=== PATIENT | male | born 1990 | race African-American/Black ===

== ENCOUNTER 2016-06-08 02:29 | Emergency (ER) | payer MEDICAID | END 2016-06-08 04:30 | disposition home or self-care (01) | LOC: D.ER 02:29 | DX: T23.021A Burn of unspecified degree of single right finger (nail) except thumb, initial encounter (principal); X08.8XXA Exposure to other specified smoke, fire and flames, initial encounter; Y93.89 Activity, other specified; Y92.89 Other specified places as the place of occurrence of the external cause; F17.200 Nicotine dependence, unspecified, uncomplicated ==

== ENCOUNTER 2016-07-18 05:33 | Emergency (ER) | payer MEDICAID ==
[2016-07-18 06:14] LABS: BASOPHILS 0.3 % (0.0-2.0); EOSINOPHILS 1.4 % (0-7); HEMOGLOBIN 15.1 g/dL (13.5-17.5); IMMATURE GRANULOCYTES 0.1 % (0-5); LYMPHOCYTES 32.4 % (15-50); MCH 32.3 pg (26.0-34.0); MCV 89.7 fL (80.0-100.0); MEAN PLATELET VOLUME 9.4 fL (7.4-10.4); MONOCYTES 11.8 % (2-11); PLATELET COUNT 216 10x3/uL (130-400); RBC 4.68 10x6/uL (4.20-6.10); RDW 13.8 % (11.5-14.5); WBC 7.8 10x3/uL (4.8-10.8)
[2016-07-18 06:44] LABS: CALC OSMOLALITY 282 mosm/kg (275-300); CALCIUM 8.8 mg/dL (8.5-10.1); CARBON DIOXIDE 23.8 mmol/L (21.0-32.0); CHLORIDE - SERUM 107 mmol/L (98-107); CREATININE - SERUM 0.8 mg/dL (0.6-1.3); GLUCOSE 104 mg/dL (74-106); POTASSIUM - SERUM 3.6 mmol/L (3.5-5.1); SODIUM 143 mmol/L (136-145); UREA NITROGEN 7 mg/dL (7-18); eGFR NON AFRICAN AMERICAN > 90 mL/min (90-120)
== END 2016-07-18 07:23 | disposition home or self-care (01) ==
LOC: D.ER 05:33
PROVIDERS: Family Medicine
DX: K52.9 Noninfective gastroenteritis and colitis, unspecified (principal); F17.200 Nicotine dependence, unspecified, uncomplicated

== ENCOUNTER 2016-08-05 07:23 | Emergency (ER) | payer MEDICAID | END 2016-08-05 08:50 | disposition home or self-care (01) | LOC: D.ER 07:23 | DX: J20.9 Acute bronchitis, unspecified (principal); F17.200 Nicotine dependence, unspecified, uncomplicated ==

== ENCOUNTER 2017-04-02 06:35 | Emergency (ER) | payer MEDICAID | END 2017-04-02 08:14 | disposition home or self-care (01) | LOC: D.ER 06:35 | DX: R11.10 Vomiting, unspecified (principal); R19.7 Diarrhea, unspecified; R10.9 Unspecified abdominal pain; J20.9 Acute bronchitis, unspecified; J45.909 Unspecified asthma, uncomplicated; F17.200 Nicotine dependence, unspecified, uncomplicated ==

== ENCOUNTER 2017-07-20 20:18 | Emergency (ER) | payer SELFPAY ==
[2017-07-20 20:46] LABS: BASOPHILS 0.2 % (0-2); HEMATOCRIT 43.7 % (42.0-54.0); HEMOGLOBIN 15.9 g/dL (13.5-17.5); IMMATURE GRANULOCYTES 0.2 % (0-5); LYMPHOCYTES 28.4 % (15-50); MCH 32.6 pg (26.0-34.0); MCHC 36.4 g/dL (31.0-37.0); MCV 89.7 fL (80.0-100.0); MEAN PLATELET VOLUME 9.6 fL (7.4-10.4); MONOCYTES 10.2 % (2-11); PLATELET COUNT 203 10x3/uL (130-400); RBC 4.87 10x6/uL (4.20-6.10); RDW 13.4 % (11.5-14.5); WBC 12.9 10x3/uL (4.8-10.8)
[2017-07-23 02:44] VITALS: BMI 28.7
== END 2017-07-20 21:39 | disposition home or self-care (01) ==
LOC: D.ER 20:18
PROVIDERS: Emergency Medicine
DX: J20.9 Acute bronchitis, unspecified (principal); J06.9 Acute upper respiratory infection, unspecified; F17.200 Nicotine dependence, unspecified, uncomplicated

== ENCOUNTER 2017-07-22 06:04 | Inpatient (IN) | payer OTHER ==
[~2017-07-22] VITALS: Ht 177.8 cm; Wt 90.9 kg
[2017-07-22 06:33] LABS: BASOPHILS 0.1 % (0-2); EOSINOPHILS 0 % (0-7); HEMATOCRIT 43.6 % (42.0-54.0); IMMATURE GRANULOCYTES 0.4 % (0-5); LYMPHOCYTES 20.9 % (15-50); MCH 32.7 pg (26.0-34.0); MCHC 36.7 g/dL (31.0-37.0); MCV 89.2 fL (80.0-100.0); MEAN PLATELET VOLUME 9.3 fL (7.4-10.4); MONOCYTES 10.5 % (2-11); NEUTROPHILS 68.1 % (40-80); PLATELET COUNT 201 10x3/uL (130-400); RBC 4.89 10x6/uL (4.20-6.10); RDW 13.3 % (11.5-14.5); WBC 14.6 10x3/uL (4.8-10.8)
[2017-07-22 06:58] LABS: ALBUMIN 3.4 g/dL (3.4-5.0); ALKALINE PHOSPHATASE 73 U/L (46-116); ALT (SGPT) 25 U/L (10-68); BILIRUBIN - TOTAL 0.97 mg/dL (0.2-1.3); CALC OSMOLALITY 275 mosm/kg (275-300); CALCIUM 8.6 mg/dL (8.5-10.1); CARBON DIOXIDE 22.3 mmol/L (21.0-32.0); CHLORIDE - SERUM 101 mmol/L (98-107); CREATININE - SERUM 1.2 mg/dL (0.6-1.3); GLUCOSE 152 mg/dL (74-106); POTASSIUM - SERUM 3.2 mmol/L (3.5-5.1); SODIUM 136 mmol/L (136-145); UREA NITROGEN 14 mg/dL (7-18); eGFR NON AFRICAN AMERICAN 78 mL/min (90-120)
[2017-07-22 06:59] LABS: MAGNESIUM - SERUM 1.9 mg/dL (1.8-2.4)
[2017-07-23 02:44] VITALS: BP 153/64; Ht 177.8 cm; Wt 90.9 kg
[2017-07-23] MEDS ORDERED: TYLENOL W/CODEI1 TAB PO (02:50)
[2017-07-23 04:45] VITALS: BP 164/74
[2017-07-23 07:13] LABS: BASOPHILS 0.3 % (0-2); EOSINOPHILS 0.4 % (0-7); HEMATOCRIT 41.9 % (42.0-54.0); HEMOGLOBIN 14.9 g/dL (13.5-17.5); IMMATURE GRANULOCYTES 0.3 % (0-5); LYMPHOCYTES 26.8 % (15-50); MCHC 35.6 g/dL (31.0-37.0); MCV 89.9 fL (80.0-100.0); MEAN PLATELET VOLUME 9.7 fL (7.4-10.4); MONOCYTES 14.4 % (2-11); NEUTROPHILS 57.8 % (40-80); PLATELET COUNT 219 10x3/uL (130-400); RBC 4.66 10x6/uL (4.20-6.10); RDW 13.2 % (11.5-14.5)
[2017-07-23 07:15] LABS: WBC 10.5 10x3/uL (4.8-10.8)
[2017-07-23 07:33] LABS: CALCIUM 8.5 mg/dL (8.5-10.1); CARBON DIOXIDE 24.2 mmol/L (21.0-32.0); CHLORIDE - SERUM 104 mmol/L (98-107); POTASSIUM - SERUM 3.5 mmol/L (3.5-5.1); SODIUM 140 mmol/L (136-145); eGFR NON AFRICAN AMERICAN > 90 mL/min (90-120)
[2017-07-23 07:45] LABS: CALC OSMOLALITY 277 mosm/kg (275-300); GLUCOSE 94 mg/dL (74-106); UREA NITROGEN 10 mg/dL (7-18)
[2017-07-23 10:38] VITALS: BP 130/74
[2017-07-23 15:04] VITALS: BP 123/71
[2017-07-23 19:08] VITALS: BP 145/86
[2017-07-23 20:24] VITALS: BP 155/82
[2017-07-24 00:16] VITALS: BP 154/88
[2017-07-24 05:05] VITALS: BP 131/69
[2017-07-24 06:19] LABS: BASOPHILS 0.4 % (0-2); EOSINOPHILS 1.5 % (0-7); HEMATOCRIT 40.9 % (42.0-54.0); HEMOGLOBIN 14.7 g/dL (13.5-17.5); IMMATURE GRANULOCYTES 0.4 % (0-5); LYMPHOCYTES 30.8 % (15-50); MCHC 35.9 g/dL (31.0-37.0); MCV 88.9 fL (80.0-100.0); MEAN PLATELET VOLUME 9.3 fL (7.4-10.4); MONOCYTES 11.2 % (2-11); NEUTROPHILS 55.7 % (40-80); PLATELET COUNT 227 10x3/uL (130-400)
[2017-07-24 06:57] LABS: CALC OSMOLALITY 281 mosm/kg (275-300); CARBON DIOXIDE 25.1 mmol/L (21.0-32.0); CHLORIDE - SERUM 106 mmol/L (98-107); CREATININE - SERUM 0.9 mg/dL (0.6-1.3); GLUCOSE 101 mg/dL (74-106); POTASSIUM - SERUM 3.4 mmol/L (3.5-5.1); SODIUM 142 mmol/L (136-145); UREA NITROGEN 9 mg/dL (7-18); eGFR NON AFRICAN AMERICAN > 90 mL/min (90-120)
[2017-07-24 08:15] VITALS: BP 137/76
[2017-07-24 12:26] VITALS: BP 140/80
[2017-07-24 16:25] VITALS: BP 131/68
[2017-07-24 21:54] VITALS: BP 136/76
[2017-07-25 01:01] VITALS: BP 148/78
[2017-07-25 04:47] VITALS: BP 154/74
[2017-07-25 06:54] LABS: BASOPHILS 0.9 % (0-2); EOSINOPHILS 1.6 % (0-7); HEMATOCRIT 41.7 % (42.0-54.0); HEMOGLOBIN 15.1 g/dL (13.5-17.5); IMMATURE GRANULOCYTES 0.4 % (0-5); LYMPHOCYTES 38.1 % (15-50); MCH 31.9 pg (26.0-34.0); MCHC 36.2 g/dL (31.0-37.0); MCV 88.2 fL (80.0-100.0); MEAN PLATELET VOLUME 9.4 fL (7.4-10.4); MONOCYTES 8.4 % (2-11); NEUTROPHILS 50.6 % (40-80); PLATELET COUNT 265 10x3/uL (130-400); RBC 4.73 10x6/uL (4.20-6.10); RDW 12.8 % (11.5-14.5); WBC 9.7 10x3/uL (4.8-10.8)
[2017-07-25 07:00] LABS: CALC OSMOLALITY 281 mosm/kg (275-300); CARBON DIOXIDE 25.2 mmol/L (21.0-32.0); CHLORIDE - SERUM 107 mmol/L (98-107); CREATININE - SERUM 0.8 mg/dL (0.6-1.3); GLUCOSE 97 mg/dL (74-106); PHOSPHOROUS 4.9 mg/dL (2.5-4.9); SODIUM 142 mmol/L (136-145); UREA NITROGEN 9 mg/dL (7-18); eGFR NON AFRICAN AMERICAN > 90 mL/min (90-120)
[2017-07-25 07:57] VITALS: BP 135/87
[2017-07-25 12:01] VITALS: BP 142/87
[2017-07-25] MEDS ORDERED: ZITHROMAX250 MG PO (14:03)
[2017-07-25] MEDS ORDERED: OMNICEF300 MG PO (14:04)
[2017-07-25] MEDS ORDERED: ALBUTEROL2.5 MG/3 M INH (14:04)
[2017-07-25] MEDS ORDERED: NICODERM C1 PATCH .2 TRANSDERM (14:04)
[2017-07-25] MEDS ORDERED: BENZONATATE200 MG PO (14:05)
[2017-07-25] MEDS ORDERED: SINGULAIR10 MG PO (14:05)
[2017-07-25] MEDS ORDERED: PREDNISONE20 MG PO (14:07)
[2017-08-01 05:17] LABS: IMMUNOGLOBULIN E 172 IU/mL (0-100)
== END 2017-07-25 15:36 | disposition home or self-care (01) | DRG 193 ==
LOC: D.ER 06:04 → D.MS 08:13 → D.EDHOLD 08:13 → D.MS 22:41
PROVIDERS: Emergency Medicine; Internal Medicine Nephrology; Internal Medicine Pulmonary Disease
DX: J18.9 Pneumonia, unspecified organism (principal); J96.21 Acute and chronic respiratory failure with hypoxia; F17.203 Nicotine dependence unspecified, with withdrawal; E87.6 Hypokalemia; J98.01 Acute bronchospasm

== ENCOUNTER 2018-03-03 11:32 | Emergency (ER) | payer SELFPAY ==
[~2018-03-03] VITALS: Ht 177.8 cm; Wt 102.3 kg
[~2018-03-03 11:32] MED LIST: ALBUTEROL2.5 MG/3 M INH; BENZONATATE200 MG PO; NICODERM C1 PATCH .2 TRANSDERM; OMNICEF300 MG PO; PREDNISONE20 MG PO; SINGULAIR10 MG PO; TYLENOL W/CODEI1 TAB PO; ZITHROMAX250 MG PO
[2018-03-03 11:36] VITALS: Ht 177.8 cm; Wt 102.3 kg
[2018-03-03] MEDS ORDERED: FLUTICASONE PRO16 GM NASAL (14:07)
[2018-03-03] MEDS ORDERED: MUCINEX DM ER1 EAC1 PO (14:07)
[2018-03-03 14:29] VITALS: BP 128/82
== END 2018-03-03 14:29 | disposition home or self-care (01) ==
LOC: D.ER 11:32
DX: J09.X2 Influenza due to identified novel influenza A virus with other respiratory manifestations (principal); R09.89 Other specified symptoms and signs involving the circulatory and respiratory systems; R50.9 Fever, unspecified

== ENCOUNTER 2018-06-02 08:43 | Emergency (ER) | payer BC ==
[~2018-06-02] VITALS: Ht 177.8 cm; Wt 109.1 kg
[~2018-06-02 08:43] MED LIST changes: +FLUTICASONE PRO16 GM NASAL; +MUCINEX DM ER1 EAC1 PO
[2018-06-02 08:46] VITALS: Ht 177.8 cm; Wt 109.1 kg
[2018-06-02] MEDS ORDERED: KEFLEX500 MG PO (09:19)
[2018-06-02 09:27] VITALS: BP 156/73
== END 2018-06-02 09:28 | disposition home or self-care (01) ==
LOC: D.ER 08:43
DX: J02.9 Acute pharyngitis, unspecified (principal); R05 Cough; F17.200 Nicotine dependence, unspecified, uncomplicated

== ENCOUNTER 2018-09-01 07:35 | Emergency (ER) | payer BC ==
[~2018-09-01] VITALS: Ht 177.8 cm; Wt 118.2 kg
[~2018-09-01 07:35] MED LIST changes: +KEFLEX500 MG PO
[2018-09-01 07:46] VITALS: BP 152/83; Ht 177.8 cm; Wt 118.2 kg
[2018-09-01] MEDS ORDERED: NASACORT10.8 ML NASAL (08:15)
[2018-09-01] MEDS ORDERED: KEFLEX500 MG PO (08:15)
== END 2018-09-01 08:27 | disposition home or self-care (01) ==
LOC: D.ER 07:35
DX: J02.9 Acute pharyngitis, unspecified (principal)

== ENCOUNTER 2019-04-14 19:06 | Emergency (ER) | payer SELFPAY ==
[~2019-04-14] VITALS: Ht 177.8 cm; Wt 104.5 kg
[~2019-04-14 19:06] MED LIST changes: +NASACORT10.8 ML NASAL
[2019-04-14 19:17] VITALS: Ht 177.8 cm; Wt 104.5 kg
[2019-04-14 20:35] VITALS: BP 161/88
== END 2019-04-14 20:35 | disposition home or self-care (01) ==
LOC: D.ER 19:06
DX: J11.1 Influenza due to unidentified influenza virus with other respiratory manifestations (principal)

== ENCOUNTER 2019-09-30 10:31 | Emergency (ER) | payer SELFPAY ==
[~2019-09-30] VITALS: Ht 177.8 cm; Wt 111.4 kg
[2019-09-30 11:00] VITALS: Ht 177.8 cm; Wt 111.4 kg
[2019-09-30] MEDS ORDERED: NAPROSYN500 MG PO (11:45)
[2019-09-30] MEDS ORDERED: KEFLEX500 MG PO (11:45)
[2019-09-30 11:52] VITALS: BP 159/97
== END 2019-09-30 11:52 | disposition home or self-care (01) ==
LOC: D.ER 10:31
DX: L03.115 Cellulitis of right lower limb (principal)

== ENCOUNTER 2019-12-02 07:12 | Emergency (ER) | payer SELFPAY ==
[~2019-12-02] VITALS: Ht 177.8 cm; Wt 109.1 kg
[~2019-12-02 07:12] MED LIST changes: +NAPROSYN500 MG PO
[2019-12-02 07:18] VITALS: BP 122/92; Ht 177.8 cm; Wt 109.1 kg
[2019-12-02 08:04] LABS: BASOPHILS 0.3 % (0-2); EOSINOPHILS 1.5 % (0-7); HEMATOCRIT 43.3 % (42.0-54.0); HEMOGLOBIN 14.9 g/dL (13.5-17.5); IMMATURE GRANULOCYTES 0.1 % (0-5); MCHC 34.4 g/dL (31.0-37.0); MEAN PLATELET VOLUME 9.4 fL (7.4-10.4); MONOCYTES 12.7 % (2-11); NEUTROPHILS 68.4 % (40-80); PLATELET COUNT 232 10x3/uL (130-400); RBC 4.81 10x6/uL (4.20-6.10); RDW 13.9 % (11.5-14.5); WBC 7.8 10x3/uL (4.8-10.8)
[2019-12-02 08:05] LABS: CALC OSMOLALITY 277 mosm/kg (275-300); CALCIUM 8.9 mg/dL (8.5-10.1); CARBON DIOXIDE 23.1 mmol/L (21.0-32.0); CHLORIDE - SERUM 105 mmol/L (98-107); CREATININE - SERUM 1.2 mg/dL (0.6-1.3); GLUCOSE 108 mg/dL (74-106); POTASSIUM - SERUM 3.6 mmol/L (3.5-5.1); SODIUM 140 mmol/L (136-145); UREA NITROGEN 7 mg/dL (7-18); eGFR NON AFRICAN AMERICAN 76 mL/min (90-120)
[2019-12-02 08:11] LABS: ALBUMIN 3.7 g/dL (3.4-5.0); ALKALINE PHOSPHATASE 96 U/L (30-120); ALT (SGPT) 28 U/L (10-68); BILIRUBIN - TOTAL 0.56 mg/dL (0.2-1.3); PROTEIN - SERUM 7.4 g/dL (6.4-8.2)
== END 2019-12-02 08:45 | disposition home or self-care (01) ==
LOC: D.ER 07:12
PROVIDERS: Family Medicine
DX: B34.9 Viral infection, unspecified (principal); R05 Cough; Z20.828 Contact with and (suspected) exposure to other viral communicable diseases